=== PATIENT | male | born 1970 | race Caucasian/White ===

== ENCOUNTER → 2017-09-03 | Outpatient (CLI) | payer BC ==
[~2017-09-03] VITALS: Ht 179.1 cm; Wt 93.0 kg
[~2017-09-03] MED LIST: ADVIL200 MG PO; LEVAQUIN250 MG PO; NEOMYCIN SULFA500 MG PO; [UNRECOGNIZED DRUG - OTHER]
[2017-09-03 11:14] LABS: HEMATOCRIT 25.8 % (38.0-50.0); HEMOGLOBIN 7.5 G/DL (12.5-16.6); MCV 74.1 FL (86-99)
== END | disposition home or self-care (01) ==
LOC: AMB 10:02
PROVIDERS: Anesthesiology
PROC: 0DBN8ZX Excision of Sigmoid Colon, Via Natural or Artificial Opening Endoscopic, Diagnostic (ICD-10-PCS; principal; 2017-09-03)
PROC: 0D7N8DZ Dilation of Sigmoid Colon with Intraluminal Device, Via Natural or Artificial Opening Endoscopic (ICD-10-PCS; principal; 2017-09-03)
PROC: BD14YZZ Fluoroscopy of Colon using Other Contrast (ICD-10-PCS; principal; 2017-09-03)
DX: C18.7 Malignant neoplasm of sigmoid colon (principal); K57.30 Diverticulosis of large intestine without perforation or abscess without bleeding; I45.10 Unspecified right bundle-branch block; J44.9 Chronic obstructive pulmonary disease, unspecified; Z87.891 Personal history of nicotine dependence; K21.9 Gastro-esophageal reflux disease without esophagitis; E78.5 Hyperlipidemia, unspecified; Z82.49 Family history of ischemic heart disease and other diseases of the circulatory system; Z80.9 Family history of malignant neoplasm, unspecified; Z83.3 Family history of diabetes mellitus
CPT/HCPCS: 74360; 85014; 85018; 88305; 93005

== ENCOUNTER 2017-09-07 21:18 | Inpatient (IN) | payer BC ==
[~2017-09-07] VITALS: Ht 177.8 cm; Wt 92.9 kg
[~2017-09-07 21:18] MED LIST changes: -NEOMYCIN SULFA500 MG PO
[2017-09-08 09:30] VITALS: BP 139/74
[2017-09-08] MEDS ORDERED: NEOMYCIN SULFA500 MG PO (09:38)
[2017-09-08 10:19] LABS: HEMATOCRIT 25.9 % (38.0-50.0); HEMOGLOBIN 7.5 G/DL (12.5-16.6); MCH 21.1 PG (29.0-34.0); MCV 72.8 FL (86-99); PLATELET COUNT 447 K/uL (156-360); RBC DIS.WIDTH-CV 18.6 % (11.8-14.6); RBC DIS.WIDTH-SD 49.1 % (39-53); RED BLOOD COUNT 3.56 M/uL (4.00-5.50); WHITE BLOOD COUNT 7.9 K/uL (4.1-10.2)
[2017-09-08 16:43] LABS: HEMATOCRIT 31.2 % (38.0-50.0); HEMOGLOBIN 9.4 G/DL (12.5-16.6); MCV 76.1 FL (86-99)
[2017-09-08 19:39] VITALS: BP 113/62
[2017-09-08 23:16] VITALS: BP 101/57
[2017-09-09 03:25] VITALS: BP 120/68
[2017-09-09 06:49] LABS: BASOPHIL (%) 0.2 % (0-1); EOSINOPHIL (%) 0.5 % (0-5); EOSINOPHIL COUNT 0.1 K/uL (0-0.3); HEMATOCRIT 29.5 % (38.0-50.0); HEMOGLOBIN 8.7 G/DL (12.5-16.6); IMMATURE GRANULOCYTE (%) 0.3 % (0.0-0.7); LYMPHOCYTE (%) 10.7 % (15-42); LYMPHOCYTE COUNT 1.2 K/uL (1.0-2.8); MCH 22.7 PG (29.0-34.0); MCHC 29.5 G/DL (30.0-36.0); MCV 76.8 FL (86-99); MONOCYTE (%) 8.5 % (3-12); MONOCYTE COUNT 0.9 K/uL (0-0.8); NEUTROPHIL (%) 79.8 % (45-76); NEUTROPHIL COUNT 8.8 K/uL (1.8-6.4); PLATELET COUNT 356 K/uL (156-360); RBC DIS.WIDTH-CV 19.4 % (11.8-14.6); RBC DIS.WIDTH-SD 54.6 % (39-53); RED BLOOD COUNT 3.84 M/uL (4.00-5.50)
[2017-09-09 07:07] LABS: ALBUMIN 2.8 G/DL (3.2-4.8); ALKALINE PHOSPHATASE 69 IU/L (3-129); ALT (GPT) 5 IU/L (3-49); AST (GOT) 9 IU/L (2-34); CHLORIDE 105 MEQ/L (99-109); CREATININE 1.2 MG/DL (0.6-1.3); GFR ESTIMATE (CALCULATED) > 59 mL/min/ (58.99-99999); GLUCOSE 97 mg/dL (70-99); POTASSIUM 4.4 MEQ/L (3.7-5.4); SODIUM 141 MEQ/L (136-147); TOTAL PROTEIN 5.2 G/DL (6.4-8.3); UREA NITROGEN (BUN) 11 mg/dL (9-23)
[2017-09-09 08:12] VITALS: BP 96/52
[2017-09-09 11:00] VITALS: BP 110/59
[2017-09-09 15:00] VITALS: BP 112/56
[2017-09-09 19:05] VITALS: BP 105/55
[2017-09-10] VITALS (7 sets, daily range): BP systolic 99–136; BP diastolic 53–72
[2017-09-10 06:35] LABS: BASOPHIL (%) 0.2 % (0-1); EOSINOPHIL (%) 2.3 % (0-5); EOSINOPHIL COUNT 0.2 K/uL (0-0.3); HEMATOCRIT 25.5 % (38.0-50.0); HEMOGLOBIN 7.6 G/DL (12.5-16.6); IMMATURE GRANULOCYTE (%) 0.5 % (0.0-0.7); LYMPHOCYTE (%) 12.1 % (15-42); LYMPHOCYTE COUNT 1.3 K/uL (1.0-2.8); MCHC 29.8 G/DL (30.0-36.0); MCV 77.3 FL (86-99); MONOCYTE (%) 9.4 % (3-12); NEUTROPHIL (%) 75.5 % (45-76); NEUTROPHIL COUNT 7.9 K/uL (1.8-6.4); PLATELET COUNT 285 K/uL (156-360); RBC DIS.WIDTH-CV 19.8 % (11.8-14.6); RBC DIS.WIDTH-SD 55.4 % (39-53); WHITE BLOOD COUNT 10.5 K/uL (4.1-10.2)
[2017-09-10 07:10] LABS: CHLORIDE 101 MEQ/L (99-109); GFR ESTIMATE (CALCULATED) > 59 mL/min/ (58.99-99999); GLUCOSE 75 mg/dL (70-99); SODIUM 137 MEQ/L (136-147); UREA NITROGEN (BUN) 11 mg/dL (9-23)
[2017-09-10 07:12] LABS: CREATININE 0.7 MG/DL (0.6-1.3)
[2017-09-11 00:55] VITALS: BP 112/59
[2017-09-11 08:13] VITALS: BP 99/56
[2017-09-11 08:54] LABS: HEMATOCRIT 29.9 % (38.0-50.0); HEMOGLOBIN 8.8 G/DL (12.5-16.6); MCH 22.9 PG (29.0-34.0); MCHC 29.4 G/DL (30.0-36.0); MCV 77.9 FL (86-99); PLATELET COUNT 342 K/uL (156-360); RBC DIS.WIDTH-CV 19.9 % (11.8-14.6); RBC DIS.WIDTH-SD 55.8 % (39-53); RED BLOOD COUNT 3.84 M/uL (4.00-5.50); WHITE BLOOD COUNT 9.8 K/uL (4.1-10.2)
[2017-09-11 09:22] LABS: CHLORIDE 101 MEQ/L (99-109); CREATININE 0.6 MG/DL (0.6-1.3); GFR ESTIMATE (CALCULATED) > 59 mL/min/ (58.99-99999); GLUCOSE 72 mg/dL (70-99); POTASSIUM 4.2 MEQ/L (3.7-5.4); SODIUM 136 MEQ/L (136-147); UREA NITROGEN (BUN) 5 mg/dL (9-23)
[2017-09-11 16:31] VITALS: BP 125/64
[2017-09-12 08:02] VITALS: BP 115/55
[2017-09-12 08:18] LABS: HEMOGLOBIN 8.2 G/DL (12.5-16.6); MCH 22.4 PG (29.0-34.0); MCHC 29.3 G/DL (30.0-36.0); MCV 76.5 FL (86-99); PLATELET COUNT 310 K/uL (156-360); RBC DIS.WIDTH-CV 19.7 % (11.8-14.6); RBC DIS.WIDTH-SD 55.1 % (39-53); RED BLOOD COUNT 3.66 M/uL (4.00-5.50); WHITE BLOOD COUNT 5.9 K/uL (4.1-10.2)
[2017-09-12 08:48] LABS: ALBUMIN 2.6 G/DL (3.2-4.8); ALKALINE PHOSPHATASE 63 IU/L (3-129); ALT (GPT) 7 IU/L (3-49); AST (GOT) 13 IU/L (2-34); C-REACTIVE PROTEIN 105.1 MG/L (0-10); CHLORIDE 103 MEQ/L (99-109); CREATININE 0.6 MG/DL (0.6-1.3); GFR ESTIMATE (CALCULATED) > 59 mL/min/ (58.99-99999); GLUCOSE 78 mg/dL (70-99); POTASSIUM 4.2 MEQ/L (3.7-5.4); SODIUM 137 MEQ/L (136-147); TOTAL BILIRUBIN 0.4 MG/DL (0.0-1.0); TOTAL PROTEIN 5.2 G/DL (6.4-8.3); UREA NITROGEN (BUN) 4 mg/dL (9-23)
[2017-09-12 15:27] VITALS: BP 124/56
[2017-09-12 22:00] VITALS: BP 128/61
[2017-09-13 03:40] VITALS: BP 132/75
[2017-09-13 06:58] VITALS: BP 108/63
[2017-09-13 11:14] VITALS: BP 107/61
[2017-09-13 15:27] VITALS: BP 116/65
[2017-09-13 19:02] VITALS: BP 127/67
[2017-09-13 22:43] VITALS: BP 148/68
[2017-09-14 03:13] VITALS: BP 123/74
[2017-09-14 07:27] VITALS: BP 118/64
[2017-09-14 11:24] LABS: HEMATOCRIT 28.3 % (38.0-50.0); HEMOGLOBIN 8.6 G/DL (12.5-16.6); MCH 22.5 PG (29.0-34.0); MCHC 30.4 G/DL (30.0-36.0); MCV 73.9 FL (86-99); PLATELET COUNT 337 K/uL (156-360); RBC DIS.WIDTH-SD 53.2 % (39-53); RED BLOOD COUNT 3.83 M/uL (4.00-5.50)
[2017-09-14 11:47] LABS: ALBUMIN 2.9 G/DL (3.2-4.8); ALKALINE PHOSPHATASE 86 IU/L (3-129); ALT (GPT) 11 IU/L (3-49); AST (GOT) 14 IU/L (2-34); C-REACTIVE PROTEIN 33.3 MG/L (0-10); CHLORIDE 103 MEQ/L (99-109); CREATININE 0.6 MG/DL (0.6-1.3); GFR ESTIMATE (CALCULATED) > 59 mL/min/ (58.99-99999); SODIUM 137 MEQ/L (136-147); TOTAL PROTEIN 5.7 G/DL (6.4-8.3); UREA NITROGEN (BUN) 7 mg/dL (9-23)
[2017-09-14 11:56] LABS: GLUCOSE 189 mg/dL (70-99); POTASSIUM 3.2 MEQ/L (3.7-5.4); TOTAL BILIRUBIN 0.3 MG/DL (0.0-1.0)
[2017-09-14 15:30] VITALS: BP 153/76
[2017-09-15 01:03] VITALS: BP 103/61
[2017-09-15 04:30] VITALS: BP 102/60
[2017-09-15 07:00] VITALS: BP 111/60
[2017-09-15 08:50] LABS: HEMOGLOBIN 9.4 G/DL (12.5-16.6); MCH 22.7 PG (29.0-34.0); MCHC 30.3 G/DL (30.0-36.0); MCV 74.7 FL (86-99); PLATELET COUNT 358 K/uL (156-360); RBC DIS.WIDTH-CV 20.5 % (11.8-14.6); RBC DIS.WIDTH-SD 54.8 % (39-53); RED BLOOD COUNT 4.15 M/uL (4.00-5.50); WHITE BLOOD COUNT 7.9 K/uL (4.1-10.2)
[2017-09-15 09:14] LABS: ALKALINE PHOSPHATASE 107 IU/L (3-129); ALT (GPT) 8 IU/L (3-49); AST (GOT) 11 IU/L (2-34); CHLORIDE 100 MEQ/L (99-109); CREATININE 0.6 MG/DL (0.6-1.3); GFR ESTIMATE (CALCULATED) > 59 mL/min/ (58.99-99999); POTASSIUM 3.4 MEQ/L (3.7-5.4); SODIUM 139 MEQ/L (136-147); TOTAL BILIRUBIN 0.3 MG/DL (0.0-1.0); UREA NITROGEN (BUN) 9 mg/dL (9-23)
[2017-09-15 09:20] LABS: GLUCOSE 103 mg/dL (70-99)
[2017-09-15 15:40] VITALS: BP 107/59
[2017-09-15 22:36] VITALS: BP 124/58
[2017-09-16 05:56] LABS: HEMOGLOBIN 8.5 G/DL (12.5-16.6); MCH 22.1 PG (29.0-34.0); MCHC 29.3 G/DL (30.0-36.0); MCV 75.3 FL (86-99); PLATELET COUNT 362 K/uL (156-360); RBC DIS.WIDTH-CV 20.6 % (11.8-14.6); RBC DIS.WIDTH-SD 55.8 % (39-53); RED BLOOD COUNT 3.85 M/uL (4.00-5.50)
[2017-09-16 07:37] VITALS: BP 110/59
[2017-09-16 10:10] LABS: C-REACTIVE PROTEIN 81.8 MG/L (0-10); CHLORIDE 96 MEQ/L (99-109); CREATININE 0.6 MG/DL (0.6-1.3); GFR ESTIMATE (CALCULATED) > 59 mL/min/ (58.99-99999); GLUCOSE 99 mg/dL (70-99); POTASSIUM 3.6 MEQ/L (3.7-5.4); SODIUM 140 MEQ/L (136-147); UREA NITROGEN (BUN) 7 mg/dL (9-23)
[2017-09-16 15:30] VITALS: BP 114/60
[2017-09-16 23:10] VITALS: BP 109/62
[2017-09-17 06:20] LABS: HEMATOCRIT 27.2 % (38.0-50.0); HEMOGLOBIN 8.1 G/DL (12.5-16.6); MCH 22.5 PG (29.0-34.0); MCHC 29.8 G/DL (30.0-36.0); MCV 75.6 FL (86-99); PLATELET COUNT 361 K/uL (156-360); RBC DIS.WIDTH-CV 20.7 % (11.8-14.6); RBC DIS.WIDTH-SD 56.8 % (39-53); WHITE BLOOD COUNT 7.3 K/uL (4.1-10.2)
[2017-09-17 06:41] LABS: ALBUMIN 2.5 G/DL (3.2-4.8); ALKALINE PHOSPHATASE 87 IU/L (3-129); ALT (GPT) 7 IU/L (3-49); AST (GOT) 11 IU/L (2-34); CHLORIDE 98 MEQ/L (99-109); CREATININE 0.6 MG/DL (0.6-1.3); DIRECT BILIRUBIN 0.2 mg/dL (0.0-0.3); GFR ESTIMATE (CALCULATED) > 59 mL/min/ (58.99-99999); GLUCOSE 93 mg/dL (70-99); MAGNESIUM 1.7 mg/dl (1.3-2.7); POTASSIUM 3.6 MEQ/L (3.7-5.4); PREALBUMIN 14.6 mg/dL (10-40); SODIUM 140 MEQ/L (136-147); TOTAL BILIRUBIN 0.5 MG/DL (0.0-1.0); TOTAL PROTEIN 4.8 G/DL (6.4-8.3); TRIGLYCERIDES 136 MG/DL (Normal: <150); UREA NITROGEN (BUN) 6 mg/dL (9-23)
[2017-09-17 06:47] LABS: BASOPHIL (%) 0.3 % (0-1); EOSINOPHIL (%) 4.4 % (0-5); EOSINOPHIL COUNT 0.3 K/uL (0-0.3); IMMATURE GRANULOCYTE (%) 0.3 % (0.0-0.7); LYMPHOCYTE (%) 12.7 % (15-42); LYMPHOCYTE COUNT 0.9 K/uL (1.0-2.8); MONOCYTE COUNT 0.6 K/uL (0-0.8); NEUTROPHIL (%) 74.3 % (45-76); NEUTROPHIL COUNT 5.5 K/uL (1.8-6.4)
[2017-09-17 07:21] VITALS: BP 114/61
[2017-09-17 16:28] VITALS: BP 114/59
[2017-09-18 00:28] VITALS: BP 128/72
[2017-09-18 07:15] VITALS: BP 130/71
[2017-09-18 15:45] VITALS: BP 118/64
[2017-09-19] VITALS: BP 129/71
[2017-09-19 07:29] VITALS: BP 134/69
[2017-09-19 16:03] VITALS: BP 131/75
[2017-09-19 23:03] VITALS: BP 133/69
[2017-09-20 07:10] VITALS: BP 128/70
[2017-09-20 15:27] VITALS: BP 121/71
[2017-09-20 23:50] VITALS: BP 119/64
[2017-09-21 06:52] VITALS: BP 109/60
[2017-09-21 15:46] VITALS: BP 126/82
[2017-09-22 00:10] VITALS: BP 118/57
[2017-09-22 06:57] VITALS: BP 137/69
[2017-09-22] MEDS ORDERED: DOCUSATE SODIU100 MG PO (09:13)
[2017-09-22] MEDS ORDERED: POLYETHYLENE GL17 GM PO (09:13)
[2017-09-22] MEDS ORDERED: OXYCODONE HCL5 MG PO (09:22)
[2017-09-22] MEDS ORDERED: TYLENOL REGULA325 MG PO (09:22)
[2017-09-22] MEDS ORDERED: MORPHINE SULFAT15 M1 PO (09:22)
[2017-09-22] MEDS ORDERED: ADVIL200 MG PO (09:22)
[2017-09-25] MEDS ORDERED: NON-ASPIRIN EX500 M2 PO (12:27)
== END 2017-09-22 15:45 | disposition home health service (06) | DRG 330 ==
LOC: ENRESERV 21:18 → 2SOUTH 09-08 09:12 → 5EAST 09-08 09:12 → ENRESERV 09-08 09:18 → 2SOUTH 09-08 09:34 → ENRESERV 09-08 16:32 → 5EAST 09-08 19:35 → ENPENDDIS 09-22 → 5EAST 09-22 15:45
PROVIDERS: Anesthesiology; Physician Assistant Medical; Student in an Organized Health Care Education/Training Program
DX: C19 Malignant neoplasm of rectosigmoid junction (principal); C79.11 Secondary malignant neoplasm of bladder; C77.5 Secondary and unspecified malignant neoplasm of intrapelvic lymph nodes; N99.71 Accidental puncture and laceration of a genitourinary system organ or structure during a genitourinary system procedure; Y65.8 Other specified misadventures during surgical and medical care; G89.18 Other acute postprocedural pain; K56.609 Unspecified intestinal obstruction, unspecified as to partial versus complete obstruction; D50.9 Iron deficiency anemia, unspecified; J44.9 Chronic obstructive pulmonary disease, unspecified; N40.1 Benign prostatic hyperplasia with lower urinary tract symptoms; E78.00 Pure hypercholesterolemia, unspecified; E78.5 Hyperlipidemia, unspecified; G43.909 Migraine, unspecified, not intractable, without status migrainosus; Z87.891 Personal history of nicotine dependence
CPT/HCPCS: 36415; 50433; 74018; 74019; 74177; 80048; 80053; 82248; 82378; 82565; 82728; 83735; 84100; 84134; 84478; 84630 90; 85014; 85018; 85025; 85027; 86140; 86850; 86900; 86901; 86920; 87070; 87075; 87205; 88305; 88309; 88331; 88341 TC; 88342 TC; 94799; C1729; C1769; C2625; J0131; J0690; J1100; J1170; J1650; J1756; J2250; J2405; J2710; J3010; J7050; J7120; J7643; P9016; P9047; S0074

== ENCOUNTER → 2017-09-30 | Day surgery (SDC) | payer BC ==
[~2017-09-30] VITALS: Ht 180.3 cm; Wt 83.9 kg
[~2017-09-30] MED LIST changes: +DOCUSATE SODIU100 MG PO; +MORPHINE SULFAT15 M1 PO; +NEOMYCIN SULFA500 MG PO; +NON-ASPIRIN EX500 M2 PO; +OXYCODONE HCL5 MG PO; +POLYETHYLENE GL17 GM PO; +TYLENOL REGULA325 MG PO
[2017-09-30 06:21] LABS: HEMATOCRIT 35.2 % (38.0-50.0); MCV 76.9 FL (86-99)
[2017-09-30 06:28] LABS: HEMOGLOBIN 10.5 G/DL (12.5-16.6)
[2017-09-30 06:43] VITALS: BP 130/77
== END | disposition home or self-care (01) ==
LOC: SDC 05:33
PROVIDERS: Student in an Organized Health Care Education/Training Program
DX: Z45.2 Encounter for adjustment and management of vascular access device (principal); C18.7 Malignant neoplasm of sigmoid colon; I87.8 Other specified disorders of veins; J44.9 Chronic obstructive pulmonary disease, unspecified; Z87.891 Personal history of nicotine dependence; Z90.49 Acquired absence of other specified parts of digestive tract; Z93.3 Colostomy status
CPT/HCPCS: 71045; 82948; 85014; 85018; C1751; C1894; J0330; J0690; J1644; J2250; J3010; S0020

== ENCOUNTER 2017-10-12 05:36 | Emergency (ER) | payer BC ==
[~2017-10-12] VITALS: Ht 180.3 cm; Wt 90.0 kg
[2017-10-12 06:29] LABS: CHLORIDE 100 mEq/L (99-109); POTASSIUM 3.7 mEq/L (3.7-5.4); SODIUM 135 mEq/L (136-147)
[2017-10-12 06:31] LABS: GLUCOSE 123 mg/dL (70-99)
[2017-10-12 06:35] LABS: CREATININE 0.9 mg/dL (0.6-1.3); GFR ESTIMATE (CALCULATED) > 59 mL/min/ (58.99-99999)
[2017-10-12 06:36] LABS: UREA NITROGEN (BUN) 13 mg/dL (9-23)
[2017-10-12 06:58] LABS: HEMATOCRIT 32.5 % (38.0-50.0); HEMOGLOBIN 10.2 G/DL (12.5-16.6); MCH 24.2 PG (29.0-34.0); MCHC 31.4 G/DL (30.0-36.0); MCV 77.2 FL (86-99); RBC DIS.WIDTH-CV 22.7 % (11.8-14.6); RBC DIS.WIDTH-SD 61.9 % (39-53); RED BLOOD COUNT 4.21 M/uL (4.00-5.50); WHITE BLOOD COUNT 9.8 K/uL (4.1-10.2)
[2017-10-12 07:02] LABS: APPEARANCE CLOUDY ((CLEAR)); BILIRUBIN NEGATIVE; BLOOD LARGE; COLOR YELLOW ((YELLOW)); GLUCOSE (STRIP) NEGATIVE; KETONES NEGATIVE; LEUKOCYTES SMALL; NITRITE NEGATIVE; PROTEIN (STRIP) 100; SPECIFIC GRAVITY 1.026 (1.000-1.030); UROBILINOGEN 0.2 MG/DL (0.2-1.0)
[2017-10-12 07:18] LABS: RED BLOOD CELLS 15-20 /HPF (0-5)
[2017-10-12 07:19] LABS: BACTERIA 1+ /HPF; EPITHELIAL CELLS 1+ /HPF; MUCUS 1+ /LPF; UCUL ADDED? YES
[2017-10-12 07:20] LABS: AMORPHOUS URATES CRYSTALS 1+; CALCIUM OXALATE CRYSTALS 2+ /HPF
[2017-10-12 07:35] LABS: PLAT.SUFFICIENCY ADEQUATE
[2017-10-12 07:36] LABS: PLATELET COUNT 240 K/uL (156-360)
[2017-10-12 08:37] LABS: APPEARANCE CLOUDY ((CLEAR)); BILIRUBIN NEGATIVE; BLOOD LARGE; COLOR YELLOW ((YELLOW)); GLUCOSE (STRIP) NEGATIVE; KETONES NEGATIVE; LEUKOCYTES LARGE; NITRITE POSITIVE; PROTEIN (STRIP) 100; SPECIFIC GRAVITY 1.012 (1.000-1.030); UROBILINOGEN 0.2 MG/DL (0.2-1.0)
[2017-10-12 09:08] LABS: EPITHELIAL CELLS 1+ /HPF; MUCUS 1+ /LPF; RED BLOOD CELLS 20-30 /HPF (0-5); WHITE BLOOD CELLS TNTC /HPF (0-5)
[2017-10-12 09:09] LABS: BACTERIA 2+ /HPF; OTHER YEAST W/HYPHAE 3+; UCUL ADDED? YES
[2017-10-12] MEDS ORDERED: KEFLEX500 MG PO (09:45)
[2017-10-12] MEDS ORDERED: PERCOCET 5/31 TABLET PO (09:53)
[2017-10-12 09:54] VITALS: BP 124/89
== END 2017-10-12 10:16 | disposition home or self-care (01) ==
LOC: EME 05:36
PROVIDERS: Emergency Medicine
DX: T83.092A Other mechanical complication of nephrostomy catheter, initial encounter (principal); Z46.6 Encounter for fitting and adjustment of urinary device; N39.0 Urinary tract infection, site not specified; Z93.6 Other artificial openings of urinary tract status; Z85.038 Personal history of other malignant neoplasm of large intestine; Z90.49 Acquired absence of other specified parts of digestive tract; Z93.3 Colostomy status; Z87.891 Personal history of nicotine dependence
CPT/HCPCS: 74176; 80048; 81003; 85027; 87086; 99281; 99284; J0696; J3010

== ENCOUNTER → 2017-10-28 | Outpatient (CLI) | payer BC ==
[~2017-10-28] MED LIST changes: +KEFLEX500 MG PO; +PERCOCET 5/31 TABLET PO
== END | disposition home or self-care (01) ==
LOC: RAD 10-24 13:00
DX: Z43.6 Encounter for attention to other artificial openings of urinary tract (principal)
CPT/HCPCS: 50431

== ENCOUNTER → 2017-11-10 | Outpatient (CLI) | payer BC ==
[~2017-11-10] MED LIST changes: +IRON325 M1 PO; +VITAMIN C500 M6 PO
== END | disposition home or self-care (01) ==
LOC: RAD 14:58
PROC: 079 Lymphatic and Hemic Systems, Drainage (ICD-10-PCS; principal; 2017-11-10)
PROC: BT1FYZZ Fluoroscopy of Left Kidney, Ureter and Bladder using Other Contrast (ICD-10-PCS; principal; 2017-11-10)
DX: N99.522 Malfunction of incontinent external stoma of urinary tract (principal); T83.012A Breakdown (mechanical) of nephrostomy catheter, initial encounter
CPT/HCPCS: 50435; C1729; C1769; J0696